=== PATIENT | male | born 1975 | race Hispanic/Latino ===

== ENCOUNTER 2020-09-20 07:27 | Outpatient (CLI) | payer BC | END 2020-09-20 07:28 | disposition home or self-care (01) | LOC: BICCT 07:27 | PROVIDERS: ATTEND Physician Assistant Medical | DX: K75.81 Nonalcoholic steatohepatitis (NASH) (principal); R10.11 Right upper quadrant pain; K29.60 Other gastritis without bleeding; N18.9 Chronic kidney disease, unspecified | CPT/HCPCS: 74150 ==